=== PATIENT | female | born 1965 ===

== ENCOUNTER 2021-12-01 06:12 | Day surgery (SDC) | payer OTHER ==
[~2021-12-01 06:12] MED LIST: COZAAR100 MG PO; METFORM PO; OTEZLA30 MG PO; SYNTHROID125 MCG PO; ZETIA10 MG PO
== END 2021-12-01 13:25 | disposition home or self-care (01) ==
LOC: CIR.AMB 06:12
PROVIDERS: ATTEND Orthopaedic Surgery Hand Surgery
DX: G56.01 Carpal tunnel syndrome, right upper limb (principal); Z85.850 Personal history of malignant neoplasm of thyroid; E66.9 Obesity, unspecified; E11.9 Type 2 diabetes mellitus without complications; Z79.84 Long term (current) use of oral hypoglycemic drugs; I10 Essential (primary) hypertension